=== PATIENT | female | born 1995 | race Caucasian/White ===

== ENCOUNTER 2021-12-15 09:58 | Emergency (ER) | payer OTHER ==
[~2021-12-15] VITALS: Ht 160 cm; Wt 55.8 kg
--- NOTE | 2021-12-15 10:35 | NUR ---
jamil and flu swabbed at this time
[2021-12-15 10:37] VITALS: BP 136/71
[2021-12-15] MEDS ORDERED: ALBUTEROL 0.083% 2.5 MG/3 ML NEBU INH ONE (11:10)
--- NOTE | 2021-12-15 11:31 | NUR ---
PT C/O COUGH, FEVER, BODY ACHES X1 WEEK. RECEIVING BREATHING TX AT THIS TIME.
[2021-12-15] MEDS ORDERED: INHA1SPA24 MC (11:35)
[2021-12-15] MEDS ORDERED: ROB PO (11:35)
[2021-12-15] MEDS ORDERED: ACET-10509 PO (11:35)
[2021-12-15] MEDS ORDERED: IBUP-2213 PO (11:35)
[2021-12-15] MEDS ORDERED: CETI10SG1 PO (11:35)
[2021-12-15] MEDS ORDERED: ALBU0.0912 INH (11:35)
--- NOTE | 2021-12-15 11:45 | NUR ---
@1109 BREATHING TX WAS ORDERED FOR PT. PT TOLERATED TX FOR ABOUT 15 MINUTES BEFORE HER HR INCREASED TO [address] ARREOLA RT STOPED TX BECAUSE OF INCREASE TO HR. PT STATED SHE FEELS OK . NO DISTRESS FELT BY THE PT.
[2021-12-15] MEDS ORDERED: guaiFENesin DM 200/20 MG-10 ML 10 ML UDC PO ONE (12:35)
[2021-12-15 12:42] VITALS: BP 109/70
--- NOTE | 2021-12-15 12:43 | NUR ---
Patient discharged with v/s stable. Written and verbal after care instructions given and explained. Patient alert, oriented and verbalized understanding of instructions. Ambulatory with steady gait. All questions addressed prior to discharge. ID band removed. Patient advised to follow up with PMD. Rx of TYLENOL, MOTRIN, ROBITUSSIN given. Patient educated on indication of medication including possible reaction and side effects. Opportunity to ask questions provided and answered.
== END 2021-12-15 12:43 | disposition home or self-care (01) ==
LOC: MED 09:58
DX: J20.8 Acute bronchitis due to other specified organisms (principal); Z20.822 Contact with and (suspected) exposure to COVID-19; J45.909 Unspecified asthma, uncomplicated; Z79.899 Other long term (current) drug therapy
CPT/HCPCS: 71045; 87426; 87804; 94640; 99284; J7613; Q0092